=== PATIENT | female | born 1955 | race Caucasian/White ===

== ENCOUNTER 2017-12-16 13:34 | Outpatient (CLI) | payer OTHER | END 2017-12-16 13:35 | disposition home or self-care (01) | LOC: BICMAMMO 13:34 | PROVIDERS: ATTEND Family Medicine | DX: Z12.31 Encounter for screening mammogram for malignant neoplasm of breast (principal) | CPT/HCPCS: 77063; 77067 ==

== ENCOUNTER 2018-09-28 13:10 | Outpatient (CLI) | payer MEDICARE ==
--- NOTE | 2018-09-28 14:49 | MRI ---
MRI cervical spine noncontrast: DATE: 09/28/2018 HISTORY: 62-year-old female with cervical radiculopathy. Bilateral upper extremity pain. COMPARISON: None available FINDINGS: Images are degraded by patient motion. Mild degree of edema throughout the prevertebral space or retr opharyngeal space (as seen on sagittal sequences; difficult to evaluate on axial sequences because of saturation band anterior to the C-spine. Vertebral body heights are maintained. Cervical spinal co rd is normal in size and signal. Multilevel degenerative disc disease, mostly mild, but severe on the right at C3-4 and C4-5. C1-2: No central stenosis. C2-3: No central or neural foraminal stenosis. Disc space maintained. C3-4: The severe right facet DJD causes a mild grade 1 anterolisthesis of C3 on C4. Broad-based, shal low disc-osteophytic bar complex indents the ventral aspect of the spinal canal and thecal sac. Mild to moderate central spinal canal stenosis. Moderate right neural foraminal stenosis. No high-gra de left neural foraminal stenosis. C4-5: Moderate disc space narrowing. Mild right paracentral-lateral focal disc-osteophyte complex sli ghtly indents the right anterior aspect of the spinal cord. Moderate central spinal canal stenosis. Moderate to severe right neural foraminal stenosis. Mild left neural foraminal stenosis. C5-6: Mild to moderate disc space narrowing. Small bilateral uncinate process osteophytes. Moderate b ilateral neural foraminal stenosis. The left C5 articular facet is enlarged diffusely. This may be developmental. C6-7: Mild, shallow broad-based disc-osteophytic bar complex encroaches upon anterior aspect of spina l canal. Ligamentum flavum thickening encroaches upon posterior aspect of spinal canal. Moderate central spinal canal stenosis. Small bilateral uncinate process osteophytes. Mild right neural forami nal stenosis. Moderate left neural foraminal stenosis. C7-T1: Disc space maintained. Moderate right facet DJD. Mild or minimal left facet DJD. No central st enosis or high-grade neural foraminal stenosis. IMPRESSION: 1. Cervical spondylosis consisting of moderate degenerative disc disease at C4-5 and C5-6, and severe right facet osteoarthrosis at C3-4 and C4-5. 2. At C4-5 there is a right paracentral-lateral focal disc-osteophyte complex which chronically mildl y indents the right side of the spinal cord. 3. Multilevel neural foraminal stenosis..
== END 2018-09-28 13:11 | disposition home or self-care (01) ==
LOC: BICMRI 13:10
PROVIDERS: ATTEND Nurse Practitioner Acute Care
DX: M47.22 Other spondylosis with radiculopathy, cervical region (principal); M50.121 Cervical disc disorder at C4-C5 level with radiculopathy; M48.02 Spinal stenosis, cervical region
CPT/HCPCS: 72141

== ENCOUNTER 2018-10-29 09:10 | Outpatient (CLI) | payer MEDICARE ==
--- NOTE | 2018-10-29 10:48 | MRI ---
MRI lumbar spine noncontrast: HISTORY: Lumbar radiculopathy, x10 years COMPARISON: None FINDINGS: Appropriate T1 marrow signal intensity of the lumbar vertebra. Lumbar spine vertebral body height is maintained. No fracture. No significant STIR hyperintensity to suggest vertebral body edema or ligamentous injury. There is intrinsic T1 and T2 hyperintense lesion along the left aspect of L2, lik salma representing a small vertebral bodies are normal. Appropriate signal intensity of the paraspinal muscles. Appropriate signal intensity of the solid organs Conus medullaris terminates at the superior aspect of L1-2 T12-L1:No significant central canal stenosis or significant neural foraminal narrowing L1-L2:No significant central canal stenosis or significant neural foraminal narrowing L2-L3:No significant central canal stenosis or significant neural foraminal narrowing L3-L4:No significant central canal stenosis or significant neural foraminal narrowing L4-L5: Broad-based disc bulge abuts the ventral thecal sac. Mild ligament flavum thickening and facet hypertrophy. No significant central canal stenosis or significant neural foraminal narrowing. L5-S1:Disc hydration. No significant central canal stenosis or significant neural foraminal narrowing . IMPRESSION: 1. No significant central canal stenosis or significant neural foramina throughout the lumbar spine.
== END 2018-10-29 09:11 | disposition home or self-care (01) ==
LOC: BICMRI 09:10
DX: M47.26 Other spondylosis with radiculopathy, lumbar region (principal); G89.4 Chronic pain syndrome
CPT/HCPCS: 72148

== ENCOUNTER 2020-02-29 12:57 | Outpatient (CLI) | payer MEDICARE ==
--- NOTE | 2020-02-29 13:33 | ULT ---
EXAM: Right lower extremity venous Doppler HISTORY: Right lower extremity pain and edema. FINDINGS: Grayscale, color-flow, Doppler evaluation, spectral analysis of the right lower extremity venous stru ctures is performed with 2-D imaging. The right common femoral, superficial femoral, popliteal, posterior tibial, proximal greater saphenous and profunda femoral veins are imaged. There is limited evaluation of grayscale images at the level of the mid and distal left lower extremi ty superficial femoral vein due to depth from skin surface. This limits evaluation for lumen compressibility, and as a result, limits evaluation for nonocclusive DVT. Normal flow and augmentatio n is seen in these veins. There is otherwise normal luminal compressibility, flow, and augmentation in the visualized deep venous structures of the right lower extremity. Subcutaneous edema is seen in the left lower extremity greatest at the level of the popliteal fossa. IMPRESSION: Limited evaluation of lumen compressibility involving the mid and distal right lower extremity superf icial femoral veins. Normal flow is present in these veins, and there is no evidence of an occlusive DVT, but nonocclusive DVT would be difficult to entirely exclude. There is otherwise no clarence dence of a DVT involving the visualized deep venous structures right lower extremity.
--- NOTE | 2020-02-29 14:03 | RAD ---
EXAM: XR Lumbar Spine Comp W Bending PROVIDED CLINICAL HISTORY: Low back pain with sciatica. COMPARISON: None FINDINGS: Scattered osteophytes are seen in the lumbar spine with larger osteophytes seen in the lower thoracic spine anteriorly. Facet degenerative changes are seen in the lower lumbar spine The vertebral body heights and intervertebral disc spaces are within normal limits. There is suggestion of trace anterol isthesis of L4 on L5. No fracture is visualized. Surgical clips overlie the upper quadrants bilaterally as well as left hemipelvis. Phleboliths overlie the pelvis. There is elevation of the rig ht hemidiaphragm. IMPRESSION: Mild degenerative changes in the lumbar spine with trace anterolisthesis of L4 on L5. No abnormal tra nslational motion is seen between the flexion and extension views lumbar spine.
--- NOTE | 2020-02-29 14:05 | RAD ---
EXAM: XR Thoracic Spine 3 V STANDARD PROVIDED CLINICAL HISTORY: Thoracic spine dysfunction. Back pain with certain movements. He states history of surgery to thoraci c spine. COMPARISON: None FINDINGS: Multilevel osteophytes are seen in thoracic spine with desiccation anterior longitudinal ligament of the lower thoracic spine. The vertebral body heights are within normal limits, no fracture or subluxation is seen involving the thoracic spine. Degenerative changes are present in the lower cervi fernando spine. Vascular calcifications are seen in the thoracic aorta. Surgical clips overlie the visualized left up per quadrant. IMPRESSION: Degenerative changes in the thoracic spine.
== END 2020-02-29 12:58 | disposition home or self-care (01) ==
LOC: BICULT 12:57
PROVIDERS: ATTEND Family Medicine
DX: M53.84 Other specified dorsopathies, thoracic region (principal); R60.0 Localized edema; M54.5 Low back pain; M47.814 Spondylosis without myelopathy or radiculopathy, thoracic region; M47.816 Spondylosis without myelopathy or radiculopathy, lumbar region
CPT/HCPCS: 72072; 72100

== ENCOUNTER 2020-03-31 11:14 | Outpatient (CLI) | payer MEDICARE ==
--- NOTE | 2020-03-31 12:04 | MMO ---
Bilateral MAMMO Bilat Screen [facility]. CLINICAL HISTORY: Patient is 64 years old and is seen for screening. The patient has no family history of breast cancer. The patient has no personal history of cancer. VIEWS: The views performed were: bilateral craniocaudal with tomosynthesis and bilateral mediolateral oblique with tomosynthesis. FILMS COMPARED: The present examination has been compared to a prior imaging study performed at [facility] on 12/16/2017. This study has been interpreted with the assistance of computer-aided detection. MAMMOGRAM FINDINGS: There are scattered fibroglandular densities. There are no suspicious masses, suspicious calcifications, or new areas of architectural distortion. IMPRESSION: THERE IS NO MAMMOGRAPHIC EVIDENCE OF MALIGNANCY. A ROUTINE FOLLOW-UP MAMMOGRAM IN 1 YEAR IS RECOMMENDED. THE RESULTS OF THIS EXAM WERE SENT TO THE PATIENT. ACR BI-RADS Category 1 - Negative MAMMOGRAPHY NOTE: 1. A negative mammogram report should not delay a biopsy if a dominant of clinically suspicious mass is present. 2. Approximately 10% to 15% of breast cancers are not detected by mammography. 3. Adenosis and dense breasts may obscure an underlying neoplasm. Reported by: FRANCISCO JAVIER CROFT MD Electonically Signed: [id number]
== END 2020-03-31 11:15 | disposition home or self-care (01) ==
LOC: BICMAMMO 11:14
PROVIDERS: ATTEND Family Medicine
DX: Z12.31 Encounter for screening mammogram for malignant neoplasm of breast (principal)
CPT/HCPCS: 77063; 77067

== ENCOUNTER 2020-03-31 11:42 | Outpatient (CLI) | payer MEDICARE ==
--- NOTE | 2020-03-31 13:19 | MRI ---
EXAM: MRI Lumbar Spine WO Con PROVIDED CLINICAL HISTORY: Back pain COMPARISON: None FINDINGS: 5 lumbar vertebral bodies are assumed. Lumbar alignment appears normal. Vertebral body heights appear preserved. No focal concerning regional marrow signal abnormality apparent. Diffuse mild disc desiccation with preservation of disc space heights. The conus medullaris is normal in signal and ter minates at an appropriate level. The visualized extraspinal soft tissues appear unremarkable. L1-2: No significant central canal or foraminal narrowing apparent. L2-3: No significant central canal or foraminal narrowing apparent. L3-4: No significant central canal or foraminal narrowing apparent. L4-5: Moderate bilateral facet arthrosis. No significant central canal or foraminal narrowing apparent. L5-S1: Moderate-severe bilateral facet arthrosis. No significant central canal or foraminal narrowing appare nt. IMPRESSION: Lower lumbar spine facet arthritis.
--- NOTE | 2020-03-31 13:54 | MRI ---
MRI of thethoracic spine: 03/31/2020 COMPARISON:None available HISTORY:Chronic mid back pain, bilateral thoracic pain TECHNIQUE: Multiplanar multisequence MR imaging of thethoracic spine without contrast Findings:The sagittal STIR imaging demonstrates no focal area of osseous marrow edema. Thoracic vertebral body height and alignment appears within normal limits. There is disc space narrowing with disc desiccation and disc bulge at C6-7, incompletely imaged on th is exam. There is no focal area of abnormal signal intensity identified within the thoracic cord on the axial T2-weighted imaging. Detailed assessment of the thoracic spine is somewhat limited secondary to motion artifact. There is no significant neural foraminal stenosis on either side there is disc space narrowing and an terior osteophyte formation on the right at the T6-7, T7-8, T8-9, and T11-12 levels. There is a benign hemangioma at T10. There is no significant central canal stenosis. IMPRESSION:No evidence for acute fracture. Thoracic spine degenerative change as detailed above with no significant central canal or neural foraminal stenosis within the thoracic spine.
== END 2020-03-31 11:43 | disposition home or self-care (01) ==
LOC: BICMRI 11:42
PROVIDERS: ATTEND Family Medicine
DX: M47.26 Other spondylosis with radiculopathy, lumbar region (principal); M51.24 Other intervertebral disc displacement, thoracic region; M47.814 Spondylosis without myelopathy or radiculopathy, thoracic region
CPT/HCPCS: 72146; 72148

== ENCOUNTER 2020-05-01 11:18 | Outpatient (CLI) | payer MEDICARE ==
--- NOTE | 2020-05-01 12:19 | RAD ---
EXAM: 4 views of the right knee HISTORY: Anterior knee pain COMPARISON: None FINDINGS: No knee effusion is seen. There is no evidence of acute fracture or dislocation. No signifi cant degenerative changes are seen. Mild infrapatellar soft tissue swelling is present. IMPRESSION: No evidence of acute osseous abnormality.
== END 2020-05-01 11:19 | disposition home or self-care (01) ==
LOC: BICRAD 11:18
PROVIDERS: ATTEND Family Medicine
DX: M25.561 Pain in right knee (principal)

== ENCOUNTER 2023-01-23 08:26 | Outpatient (CLI) | payer MEDICARE | END 2023-01-23 08:27 | disposition home or self-care (01) | LOC: BICULT 08:26 | PROVIDERS: ATTEND Family Medicine | DX: R39.12 Poor urinary stream (principal); N28.9 Disorder of kidney and ureter, unspecified; N39.43 Post-void dribbling | CPT/HCPCS: 76770; 81001 ==

== ENCOUNTER 2023-04-09 07:48 | Outpatient (CLI) | payer MEDICARE ==
[2023-04-09] MEDS ORDERED: Magnevist 469MG/ML 20 ML VIAL ONE (09:52)
== END 2023-04-09 07:49 | disposition home or self-care (01) ==
LOC: MRI 07:48
PROVIDERS: ATTEND Urology
DX: N28.89 Other specified disorders of kidney and ureter (principal); N28.1 Cyst of kidney, acquired
CPT/HCPCS: 74183

== ENCOUNTER 2023-07-31 08:26 | Outpatient (CLI) | payer MEDICARE | END 2023-07-31 08:27 | disposition home or self-care (01) | LOC: NM 08:26 | PROVIDERS: ATTEND Psychiatry & Neurology Neurology | DX: G20.C Parkinsonism, unspecified (principal) | CPT/HCPCS: 78803; A9584 ×2 ==

== ENCOUNTER 2023-12-04 10:43 | Outpatient (CLI) | payer MEDICARE | END 2023-12-04 10:44 | disposition home or self-care (01) | LOC: BICULT 10:43 | PROVIDERS: ATTEND Urology | DX: N28.89 Other specified disorders of kidney and ureter (principal) | CPT/HCPCS: 76770 ==

== ENCOUNTER 2023-12-24 09:07 | Outpatient (CLI) | payer MEDICARE | END 2023-12-24 09:08 | disposition home or self-care (01) | LOC: BICCT 09:07 | PROVIDERS: ATTEND Psychiatry & Neurology Neurology | DX: G45.9 Transient cerebral ischemic attack, unspecified (principal) | CPT/HCPCS: 70450 ==

== ENCOUNTER 2024-01-21 11:31 | Outpatient (CLI) | payer MEDICARE | END 2024-01-21 11:32 | disposition home or self-care (01) | LOC: BICMAMMO 11:31 | PROVIDERS: ATTEND Family Medicine | DX: Z12.31 Encounter for screening mammogram for malignant neoplasm of breast (principal) | CPT/HCPCS: 77063; 77067 ==